=== PATIENT | male | born 1980 | race Caucasian/White ===

== ENCOUNTER 2019-08-01 12:40 | Emergency (ER) | payer BC ==
[2019-08-01] MEDS ORDERED: NS 0.9% 1000 ML** 1,000 ML IV ONE (14:03)
[2019-08-01] MEDS ORDERED: Ondansetron INJ* 2 MG/ML VIAL IV ONE (14:03)
--- NOTE | 2019-08-01 14:25 | ED ---
Abdominal Pain/Male - HPI Summary HPI Summary: The pt is a 38 yr old male presenting to [facility] c/o abd pain and diarrhea beginning 1 week [employer]. He also mentions that he had intermittent vomiting 7 days [employer] that resolved but returned 1 day [employer]. He notes that the abd pain is in his epigastric region, does not radiate, and rates his current pain severity due to it a 2/10. He mentions that he was bitten by a tick 1 month [employer] and has not had any recent travel. The pt also notes that his friends have had similar symptoms over the last week. No aggravating or alleviating factors noted. He also reports nausea but denies any hematemesis or chest pain. - History of Current Complaint Chief Complaint: EDNauseaVomitDiarrh Stated Complaint: VOMITING,GALL BLADDER PAIN Time Seen by Provider: 08/01/19 14:03 Hx Obtained From: Patient Onset/Duration: Sudden Onset, Lasting Weeks, Still Present Timing: Constant, Lasting Weeks Severity Initially: Mild Severity Currently: Mild Pain Intensity: 2 Pain Scale Used: 0-10 Numeric Location: Epigastric - Allergies/Home Medications Allergies/Adverse Reactions: Allergies Allergy/AdvReac Type Severity Reaction Status Date / Time No Known Allergies Allergy Verified 08/01/19 12:49 PMH/Surg Hx/FS Hx/Imm Hx Cardiovascular History: Reports: Other Cardiovascular Problems/Disorders - 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 2008 NASAL FX- [facility] [place] Hx Anesthesia Reactions: No Infectious Disease History: No Infectious Disease History: Denies: Traveled Outside the [place] in Last 30 Days - Family History Known Family History: Negative: Renal Disease - Social History Alcohol Use: Rare Alcohol Amount: 1 DRINK/WEEK WHISKEY Substance Use Type: Reports: None Smoking Status (MU): Former Smoker Type: Cigarettes Amount Used/How Often: 1 PPWEEK FOR 4 YRS Length of Time of Smoking/Using Tobacco: 4 YRS Have You Smoked in the Last Year: No Review of Systems Negative: Chest Pain Gastrointestinal: Other - neg - hematemesis Positive: Abdominal Pain, Vomiting, Diarrhea, Nausea All Other Systems Reviewed And Are Negative: Yes Physical Exam - Summary Physical Exam Summary: Constitutional: Well-developed, Well-nourished, Alert. (-) Distressed Skin: Warm, Dry HENT: Normocephalic; Atraumatic Eyes: Conjunctiva normal Neck: Musculoskeletal ROM normal neck. (-) JVD, (-) Stridor, (-) Tracheal deviation Cardio: Rhythm regular, rate normal, Heart sounds normal; Intact distal pulses; The pedal pulses are 2+ and symmetric. Radial pulses are 2+ and symmetric. (-) Murmur Pulmonary/Chest wall: Effort normal. (-) Respiratory distress, (-) Wheezes, (-) Rales Abd: Soft, (-) tenderness, (-) Distension, (-) Guarding, (-) Rebound Musculoskeletal: (-) Edema Lymph: (-) Cervical adenopathy Neuro: Alert, Oriented x3 Psych: Mood and affect Normal Triage Information Reviewed: Yes Vital Signs On Initial Exam: Initial Vitals Temp Pulse Resp BP Pulse Ox 98.0 F 86 16 139/112 95 08/01/19 12:46 08/01/19 12:46 08/01/19 12:46 08/01/19 12:46 08/01/19 12:46 Vital Signs Reviewed: Yes Procedures - Sedation Patient Received Moderate/Deep Sedation with Procedure: No Diagnostics - Vital Signs Vital Signs Temp Pulse Resp BP Pulse Ox 08/01/19 12:46 98.0 F 86 16 139/112 95 - Laboratory Result Diagrams: 08/01/19 14:21 08/01/19 14:21 Lab Statement: Any lab studies that have been ordered have been reviewed, and results considered in the medical decision making process. Abdominal Pain Male Course/Dx - Course Course Of Treatment: The pt is a 38 yr old male presenting to [facility] c/o abd pain and diarrhea beginning 1 week [employer]. He also mentions that he had intermittent vomiting 7 days [employer] that resolved but returned 1 day [employer]. He notes that the abd pain is in his epigastric region, does not radiate, and rates his current pain severity due to it a 2/10. Test results normal except for RBC 5.67 and Absolute Eos 2.6. Final Dx is gastroenteritis. Pt will be discharged home with PCP follow up. Pt is agreeable with this plan. - Diagnoses Provider Diagnoses: Gastroenteritis Discharge ED - Sign-Out/Discharge Documenting (check all that apply): Patient Departure - discharge - Discharge Plan Condition: Stable Disposition: HOME Patient Education Materials: Gastroenteritis (ED) Referrals: Kerry Owens NP, CNM [Primary Care Provider] - 3 Days Additional Instructions: Please follow up with your primary care physician in 3 days. Please return to the ED for any new or worsening symptoms. - Billing Disposition and Condition Condition: STABLE Disposition: Home - Attestation Statements Document Initiated by Alfie: Yes Documenting Scribe: Lane Ingram Provider For Whom Alfie is Documenting (Include Credential): Cristóbal Salazar DO Scribe Attestation: Lane Orr, scribed for Cristóbal Salazar DO on 08/01/19 at 1821. Scribe Documentation Reviewed: Yes Provider Attestation: The documentation as recorded by the Lane salgado accurately reflects the service I personally performed and the decisions made by , Cristóbal Salazar DO Status of Scribe Document: Viewed
[2019-08-01 14:29] LABS: Hematocrit 50 % (42-52); Mean Corpuscular HGB Conc 34 g/dL (31-36); Mean Corpuscular Hemoglobin 30 pg (27-31); Mean Corpuscular Volume 88 fL (80-94); Mean Platelet Volume 8.2 fL (7.4-10.4); Platelet Count 196 10^3/uL (150-450); Red Blood Count 5.67 10^6 /uL (4.18-5.48); Red Cell Distribution Width 14 % (10-15); White Blood Count 9.7 10^3/uL (3.5-10.8)
[2019-08-01 14:45] LABS: Albumin 4.2 g/dL (3.2-5.2); Albumin/Globulin Ratio 1.8 (1-3); BUN/Creatinine Ratio 11.8 (8-20); Calcium 9.1 mg/dL (8.6-10.3); EGFR African American 91.1 (>60); EGFR Non-African American 75.3 (>60); Globulin 2.4 g/dL (2-4); Potassium 4.6 mmol/L (3.5-5.0); Total Bilirubin 0.6 mg/dL (0.2-1.0); Total Protein 6.6 g/dL (6.4-8.9)
[2019-08-01 14:59] LABS: ABS Eosinophils 2.6 10^3/ul (0-0.6); ABS Lymphocytes 1.7 10^3/ul (1.0-4.8); ABS Monocytes 0.4 10^3/ul (0-0.8); Eosinophil % 26.8 %; Lymphocyte % 17.5 %; Nucleated Red Blood Cells % 0.4
[2019-08-01 16:05] VITALS: BP 138/79
== END 2019-08-01 16:00 | disposition home or self-care (01) ==
LOC: ED 12:40
DX: K52.9 Noninfective gastroenteritis and colitis, unspecified (principal); Z87.442 Personal history of urinary calculi; Z87.891 Personal history of nicotine dependence
CPT/HCPCS: 36415; 80053; 85025; 96360; 99282; J2405